=== PATIENT | female | born 1960 | race Caucasian/White ===

== ENCOUNTER 2017-10-18 12:05 | Emergency (ER) | payer BC, SELFPAY ==
[2017-10-18 12:05] VITALS: BP 136/91; PULSE 87; RESP 16; TEMP 36.8; O2SAT 100; BMI 20.9
--- NOTE | 2017-10-18 12:17 | NURSING ---
NO OLD EKG'S IN MUSE.
--- NOTE | 2017-10-18 12:30 | EKG12_ITS ---
Test Reason : CHEST TIGHTNESS Blood Pressure : / mmHG Vent. Rate : 071 BPM Atrial Rate : 071 BPM P-R Int : 156 ms QRS Dur : 080 ms QT Int : 376 ms P-R-T Axes : 044 065 031 degrees QTc Int : 408 ms Normal sinus rhythm Normal ECG Confirmed by PATTY GOMEZ, JUSTIN ([id number]), technical writer and editor YANCY CARNEY ([id number]) on 10/23/2017 3:06:08 PM Referred By: YODIT Confirmed By:JUSTIN BRAMBILA MD
--- NOTE | 2017-10-18 12:30 | RAD_ITS ---
STUDY: X-RAY CHEST REASON FOR EXAM: Female, 57 years old. Substernal chest pain TECHNIQUE: Single AP portable view of the chest. COMPARISON: None. FINDINGS: There is hyperinflation of the lungs consistent with chronic obstructive lung disease (COPD). Lungs are clear. There is no demonstrated pleural abnormality. Normal size heart. Normal mediastinum and criselda. Normal visualized pulmonary arteries. Normal visualized aortic arch and descending thoracic aorta. Normal visualized thoracic spine. Normal visualized ribs, clavicles, and shoulders. There is no demonstrated abnormality of the visualized soft tissue structures of the upper abdomen. RAD/Chest 1 View (Portable) IMPRESSION: No acute cardiopulmonary disease Electronically Signed: Timmy Tong DO at 13:18 EDT Tel , Service support ,
[2017-10-18 12:57] VITALS: O2SAT 98
[2017-10-18] MEDS: Aspirin 81 MG TAB.CHEW 324 MG PO (13:02)
[2017-10-18] MEDS: 0.9% Normal Saline 1,000 ML 150 ML IV (13:02)
[2017-10-18 13:05] VITALS: BP 121/77; PULSE 77; RESP 13; O2SAT 99
[2017-10-18 13:14] LABS: Absolute Lymphocyte Count 0.98 X10^3/ul (0.83-4.51); Absolute Neutrophil Count 6.3 X10^3/uL (2.0-7.7); Anion Gap 6 (5-15); BUN 13 mg/dL (7-18); BUN/Creat Ratio 14.7 RATIO (10-20); Basophil# 0.01 X10^3/uL; Basophil% 0.1 % (0-1); Calcium,Total 9.1 mg/dL (8.5-10.1); Chloride 104 mmol/L (98-107); Creatinine, Serum 0.88 mg/dL (0.55-1.02); EST Glomerular Filtration Rate 70 mL/min (>60); Eosinophil# 0.01 X10^3/uL; Eosinophils% 0.1 % (0-5); Est Glom Filt Rate - Afr Amer 85 mL/min (>60); Estimated Creatinine Clearance 67.24 ml/min; Glucose 115 mg/dL (74-106); Hematocrit 40.7 % (37-47); Hemoglobin 13.6 g/dl (12.0-15.0); Lymphocyte # 0.98 X10^3/ul (4.0); Lymphocyte % 12.8 % (19-41); Mean Corp Hgb Conc 33.4 g/gl (32-36); Mean Corpuscular Hgb 31.6 pg (27.0-32.0); Mean Corpuscular Volume 94.4 fL (81-99); Mean Platelet Vol. 10.2 fl (6.2-12.0); Monocyte# 0.34 X10^3/uL; Monocyte% 4.5 % (0-10); Neutrophil # 6.28 X10^3/uL (2.7-7.7); Neutrophil % 82.4 % (47-70); Platelet Count 266 K/mm3 (150-450); Potassium 3.8 mmol/L (3.5-5.1); RBC Distribution Width SD 44.9 fl (35.1-43.9); Red Blood Count 4.31 M/mm3 (4.2-5.4); Sodium Level 134 mmol/L (136-145); White Blood Count 7.6 K/mm3 (4.4-11.0)
[2017-10-18 13:15] LABS: POSITIVE COUNT NO; POSITIVE DIFFERENTIAL NO; POSITIVE MORPHOLOGY NO
[2017-10-18 13:20] LABS: D-Dimer Quantitative (DVT/PE) 0.27 FEU/ug/m (0.27-0.49)
[2017-10-18 14:07] VITALS: BP 121/71; PULSE 77; RESP 10; O2SAT 96
[2017-10-18 14:13] VITALS: BP 121/71; PULSE 86; RESP 15; O2SAT 97
--- NOTE | 2017-10-18 14:51 | ED.DCSUM_ITS ---
- ER Visit Summary Date of Service: 10/18/17 Chief Complaint: Chest pain History of Present Illness: The patient is a 57 F with a 2 day history of chest pain. She points to the left sternal border as well as the left lateral ribs. 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 She states that her shoulder is currently flared up and when she puts ice on her shoulder her chest pain does seem to get better. She just wanted to make sure that she was not having any acute cardiac issues that needed addressed. She does not feel short of breath. She has not broken out a cold sweat. She has no significant family history. She has no known risk factors. Physical Examination: Vital signs are unremarkable. Patient sitting upright in bed no acute distress. Head neck examination is unremarkable. Heart is regular rate and rhythm. Lung sounds are clear. She does have mild tenderness along left sternal border. Abdomen is soft nontender. Lower extremity examination was no calf tenderness or edema. Test Results: EKG is sinus at 71 with no sign of acute ischemia. Chest x-ray shows no acute disease. CBC and chemistry studies unremarkable. Sodium is slightly low at 134. Troponin is less than 0.015. D-dimer 0.27. Emergency Department Course and Treatment: Patient was given aspirin on arrival here. On repeat evaluation she is resting comfortably. She does feel improved at this time. She wishes to follow-up with her fast as an outpatient and she will be referred to her. She will be given prescription for anti- inflammatories. Treatment Plan: [] Disposition: Discharge Impression: Atypical chest pain This note was generated with [employer] dictation software. It may contain incorrect words, spelling, and punctuation that were not noted in review of the chart prior to signing ED Disposition - Plan for ED Patient: Chief Complaint: Chest Pain Referrals: Care Physician,No Primary [Primary Care Provider] -
--- NOTE | 2017-10-18 14:51 | ED.DEP ---
ED Disposition - Plan for ED Patient: Disposition: Home or Assisted Living Chief Complaint: Chest Pain Instructions: ED Chest Pain Atypical Unkn Cause Prescriptions: Naproxen [Naprosyn] 500 mg PO BID PRN #20 tablet Referrals: Masoud,Celeste, DO [NON-STAFF] - As soon as possible
[2017-10-18 15:01] VITALS: BP 128/73; PULSE 72; RESP 18; O2SAT 98; O2SAT 99
== END 2017-10-18 15:02 | disposition home or self-care (01) ==
PROVIDERS: Emergency Provider Emergency Medicine
DX: R07.89 Other chest pain (principal); Z79.899 Other long term (current) drug therapy
CPT/HCPCS: 71045; 80048; 84484; 85025; 85379; 93005; 99284; A4216

== ENCOUNTER → 2018-04-02 09:53 | Outpatient (CLI) | payer OTHER, SELFPAY ==
--- NOTE | 2018-04-02 09:58 | BI_ITS ---
MAMMOGRAPHY - BILATERAL SCREENING REASON FOR EXAM: Female, 58 years old. Routine annual screening examination. PERTINENT HISTORY: Grandmother with breast cancer. TECHNIQUE: Digital bilateral breast shaq (3D mammographic acquisition) in the CC and MLO projections. 2-D mediolateral oblique (MLO) and craniocaudad (CC) views of both breasts were obtained. CAD: Full Field Digital Mammography with Computer Added Detection was performed. COMPARISON: Comparison is made with prior study dated #32,[id number] and December 14, 2010. FINDINGS: Breast Composition: The breasts are heterogeneously dense, which may obscure small masses. There are no dominant masses or suspicious calcifications. Stable small bilateral axillary lymph nodes. No other significant abnormalities are identified. There has been no significant change since the prior study. BI/SCREENING MAMM (CAD), BILAT IMPRESSION: Stable bilateral screening mammogram. Yearly follow-up mammogram recommended. (A) ASSESSMENT CATEGORY: BIRADS Category 2: Benign. A letter regarding these results will be sent to the patient by the facility within 30 days. Approximately 10% of breast cancers are not detected by mammography. A normal mammogram should not delay biopsy of a clinically suspicious abnormality. [id number] Electronically Signed: Grant Kohler MD at 12:40 EST Tel [phone], Service support ,
--- OUTSIDE RECORDS SUMMARY | 2018-05-19 03:56 | XMS RPT_ITS ---
:1960 Author Organization [facility] Care Team Providers Name Role Phone PRISCILLA CHAWLA Attending Unavailable PRISCILLA CHAWLA Referring Unavailable Priscilla Chawla Attending Unavailable Primay Care Physicia, No Primary Care Unavailable Primay Care Physicia, No Primary Care Unavailable Sahyy Fung Attending Unavailable PROBLEMS PROBLEMS DATE TYPE CONDITION / CODE ATTENDING STATUS SOURCE 04/02/2018 Active Encounter for Active [facility] screening for [place] lipoid disorders Repository / Z13.220(ICD-10) 04/02/2018 Active Encounter for Active [facility] screening for [place] diabetes Repository mellitus / Z13.1(ICD-10) PROCEDURES PROCEDURES No Procedure Records FoundRESULTS RESULTS SCREENING MAMM (CAD), Observed: 04/02/2018 Status: F Source: [place] BILAT 9:59 AM [facility] REPOSITORY [facility] Imaging Services [address] [place] [address] SCREENING MAMM (CAD), BILAT MR#: [id number] Acct: [id number] Name: KYLAH MOE Rep #: [id number] : 1960 F 58 From: Grant Kohler MD PCP: Care Physician, No Primary Status: REG CLI Study: SCREENING MAMM (CAD), BILAT Date of Exam: 04/02/18 Exam# [id number] Ordering Dr: Priscilla Chawla MD MAMMOGRAPHY - BILATERAL SCREENING REASON FOR EXAM: Female, 58 years old. Routine annual screening examination. PERTINENT HISTORY: Grandmother with breast cancer. TECHNIQUE: Digital bilateral breast shaq (3D mammographic acquisition) in the CC and MLO projections. 2-D mediolateral oblique (MLO) and craniocaudad (CC) views of both breasts were obtained. CAD: Full Field Digital Mammography with Computer Added Detection was performed. COMPARISON: Comparison is made with prior study dated #32, and December 14, 2010. FINDINGS: Breast Composition: The breasts are heterogeneously dense, which may obscure small masses. There are no dominant masses or suspicious calcifications. Stable small bilateral axillary lymph nodes. No other significant abnormalities are identified. There has been no significant change since the prior study. BI/SCREENING MAMM (CAD), BILAT IMPRESSION: Stable bilateral screening mammogram. Yearly follow-up mammogram recommended. (A) ASSESSMENT CATEGORY: BIRADS Category 2: Benign. A letter regarding these results will be sent to the patient by the facility within 30 days. Approximately 10% of breast cancers are not detected by mammography. A normal mammogram should not delay biopsy of a clinically suspicious abnormality. [id number] Electronically Signed: Grant Kohler MD at 12:40 EST Tel [phone], Service support , CC: No Primary Care Physician; Priscilla Chawla MD Novelties Sales Representative: Signed GLUCOSE, FASTING Collected: 04/02/2018 Status: F Source: [place] 9:00 AM [facility] [place] REPOSITORY TYPE CODE TESTS RESULT OUT OF REFERENCE UNITS RANGE LAB GLF 74-99 mg/dL Glucose, 98 Fasting Result Comment: [place] Diabetes Association guidelines state that a diabetes mellitus diagnosis is preliminarily made when the fasting plasma glucose meets or exceeds 126 mg/dL. In the absence of unequivocal hyperglycemia, results should be confirmed with repeat testing. Patients are at increased risk for diabetes mellitus (prediabetes) when the fasting glucose is 100 to 125 mg/dL. Performed By: #### GLF #### [facility] [address] [place], [place] [address] LIPID PANEL, NONFAST Collected: 04/02/2018 Status: F Source: [place] 8:59 AM [facility] REPOSITORY TYPE CODE TESTS RESULT OUT OF REFERENCE UNITS RANGE LAB CHOLNF <200 mg/dL Total High Cholesterol NF 204 Result Comment: <200 mg/dL, Desirable 200-239 mg/dL, Borderline high >239 mg/dL, High LAB TRIGNF <150 mg/dL Triglycerides, NF 69 Result Comment: <150 mg/dL, Normal 150-199 mg/dL, Borderline high 200-499 mg/dL, High >499 mg/dL, Very high LAB HDLNF >39 mg/dL HDL Cholesterol, NF 72 Result Comment: 40-59 mg/dL, Acceptable >59 mg/dL, High: Negative risk factor for coronary heart disease <40 mg/dL, Low: Positive risk factor for coronary heart disease LAB LDLNF <100 mg/dL LDL Cholesterol, High NF 118 Result Comment: <100 mg/dL, Optimal 100-129 mg/dL, Near optimal/above optimal 130-159 mg/dL, Borderline high 160-189 mg/dL, High >189 mg/dL, Very high Secondary prevention optimal LDL Cholesterol levels are recommended to be < 70 mg/dL LAB NOHDLN <130 mg/dL High Non HDL Chol, 132 NF Result Comment: <130 mg/dL, Optimal 130-159 mg/dL, Near optimal/above optimal 160-189 mg/dL, Borderline high 190-219 mg/dL, High >219 mg/dL, Very high Secondary prevention optimal non HDL Cholesterol levels are recommended to be < 100 mg/dL LAB VLDLNF <30 mg/dL VLDL Cholesterol, NF 14 LAB TCHDLN <5.10 mg/dL T Chol/HDL Ratio NF 2.83 LAB LDLHDN <2.54 mg/dL LDL/HDL Ratio, NF 1.64 Result Comment: Reference: 1. National Cholesterol Education Program ATP III Guideline At-A-Glance Quick Desk Reference: National Heart, Lung, and Blood [place]. National Institutes of Health. 2001: NIH Publication No. 01-3305. 2. An International Atherosclerosis Society position paper: global recommendations for the management of dyslipidemia: executive summary, Atherosclerosis. 2014: 232(2):410-413. Performed By: #### LIPNF #### [facility] [address] [place], [place] [address] PROGRESS Observed: 03/10/2018 Status: COMPLETED Source: [place] 11:58 AM [facility] REPOSITORY HNO ID: [id number] Author: Priscilla Chawla Service: (none) Author Type: Physician Type: Progress Notes Filed: 03/10/2018 4:12 PM Note Text: Kylah Moe is a 58 year old who presents for her annual gynecologic exam without complaints. Postmenopausal: yes HRT use: No. Last Pap: 2016 normal HPV: 2017 negative History of abnormal pap: No Last mammogram: 2017 normal Sexually active: Yes Obstetric History T0 L0 SAB0 TAB0 Ectopic0 Multiple0 Live Births0 PAST MEDICAL HISTORY Diagnosis Date - Esophagitis - Excessive or frequent menstruation Heavy periods - Irregular menstrual cycle Irregular periods PAST SURGICAL HISTORY Procedure Laterality Date - HYSTEROSCOPY, SURGICAL; WITH ENDOME 07/17/10 Novasure, hysteroscopy [facility] - PAST SURGICAL HISTORY OF right arm fracture repair at 6 years old FAMILY HISTORY Problem Relation Age of Onset - Cancer Mother esouphagous - other (fibroids) Mother had hysterectomy - Cancer Maternal Grandmother breast ca with mastectomy - Diabetes Maternal Grandmother SOCIAL HISTORY Social History Substance Use Topics - Smoking status: Never Smoker - Smokeless tobacco: Never Used - Alcohol use Yes Comment: occasional REVIEW OF SYSTEMS Abdomen: No abdominal pain, nausea, vomiting, diarrhea, or constipation. No bloating, early satiety, indigestion, or increased flatulence. Bladder: No dysuria, gross hematuria, urinary frequency, urinary urgency, or incontinence Breast: No breast lumps, nipple d/c, overlying skin changes, redness or skin retraction Allergies and current medication updated:Yes EXAM: Ht 5' 6.25 (1.68m) Wt 132 lb (59.9kg) BMI 21.14 kg/(m2). GENERAL: pleasant, female in no apparent distress HEENT: Normocephalic, atraumatic, mucus membranes moist and no lesions NECK: Supple, full range of motion, no adenopathy and thyroid normal DERMATOLOGY: Normal, without lesions, non-icteric and non-hirsute BREAST: soft, non-tender, symmetric, no dominant mass, normal nipple-areolar complex, no lymphadenopathy and no nipple discharge CHEST: Normal inspiratory effort ABDOMEN: soft, non-tender and no masses PELVIC: external genitalia normal, normal Bartholin's glands, urethra, Horatio's glands, no vulvar lesions, no cervical lesions, good vaginal support, physiologic discharge present, normal appearing perineal body and perianal region BIMANUAL: uterus normal size, shape and consistency, no adnexal masses and non-tender RECTOVAGINAL: deferred. NEURO: alert and oriented x3,exam grossly non-focal EXTREMITIES: normal ASSESSMENT/PLAN: 1) Health maintenance: Pap/HPV up to date. Mammogram ordered Colon cancer screening: up to date with screening screening llipids and glucose ordered recommend est. w/ PCP d/w her calcium and vit d supplementation 2) Follow up one year or sooner as needed Priscilla Chawla MD CNOV Observed: 03/10/2018 Status: COMPLETED Source: [place] 11:40 AM [facility] REPOSITORY Office Visit (WOOB) KYLAH MOE ([id number]) 1960 F Date Time Provider Department 03/10/18 11:40 AM PRISCILLA CHAWLA WOOB During your visit today, we recorded the following information about you: Blood pressure Weight Height 122/70 59.9 kg 1.683 m Priscilla Chawla MD 03/10/2018 4:12 PM Signed Kylah Doll Malika is a 58 year old who presents for her annual gynecologic exam without complaints. Postmenopausal: yes HRT use: No. Last Pap: 2017 normal HPV: 2017 negative History of abnormal pap: No Last mammogram: 2018 normal Sexually active: Yes Obstetric History T0 L0 SAB0 TAB0 Ectopic0 Multiple0 Live Births0 PAST MEDICAL HISTORY Diagnosis Date - Esophagitis - Excessive or frequent menstruation Heavy periods - Irregular menstrual cycle Irregular periods PAST SURGICAL HISTORY Procedure Laterality Date - HYSTEROSCOPY, SURGICAL; WITH ENDOME 07/17/10 Novasure, hysteroscopy [facility] - PAST SURGICAL HISTORY OF right arm fracture repair at 6 years old FAMILY HISTORY Problem Relation Age of Onset - Cancer Mother esouphagous - other (fibroids) Mother had hysterectomy - Cancer Maternal Grandmother breast ca with mastectomy - Diabetes Maternal Grandmother SOCIAL HISTORY Social History Substance Use Topics - Smoking status: Never Smoker - Smokeless tobacco: Never Used - Alcohol use Yes Comment: occasional REVIEW OF SYSTEMS Abdomen: No abdominal pain, nausea, vomiting, diarrhea, or constipation. No bloating, early satiety, indigestion, or increased flatulence. Bladder: No dysuria, gross hematuria, urinary frequency, urinary urgency, or incontinence Breast: No breast lumps, nipple d/c, overlying skin changes, redness or skin retraction Allergies and current medication updated:Yes EXAM: Ht 5' 6.25 (1.68m) Wt 132 lb (59.9kg) BMI 21.14 kg/(m2). GENERAL: pleasant, female in no apparent distress HEENT: Normocephalic, atraumatic, mucus membranes moist and no lesions NECK: Supple, full range of motion, no adenopathy and thyroid normal DERMATOLOGY: Normal, without lesions, non-icteric and non-hirsute BREAST: soft, non-tender, symmetric, no dominant mass, normal nipple-areolar complex, no lymphadenopathy and no nipple discharge CHEST: Normal inspiratory effort ABDOMEN: soft, non-tender and no masses PELVIC: external genitalia normal, normal Bartholin's glands, urethra, Horatio's glands, no vulvar lesions, no cervical lesions, good vaginal support, physiologic discharge present, normal appearing perineal body and perianal region BIMANUAL: uterus normal size, shape and consistency, no adnexal masses and non-tender RECTOVAGINAL: deferred. NEURO: alert and oriented x3,exam grossly non-focal EXTREMITIES: normal ASSESSMENT/PLAN: 1) Health maintenance: Pap/HPV up to date. Mammogram ordered Colon cancer screening: up to date with screening screening llipids and glucose ordered recommend est. w/ PCP d/w her calcium and vit d supplementation 2) Follow up one year or sooner as needed Priscilla Chawla MD Referring Provider: SELF [200] Allergies As of Date: 03/10/2018 (No Known Allergies) Date Reviewed: 03/10/2018 Reviewed by: Priscilla Chawla - Fully Assessed Reason for Visit: Yearly Exam [187] Primary Visit Diagnosis:Encounter for gynecological examination (general) (routine) without abnormal findings [Z01.419] Other Visit Diagnoses:Encounter for screening for diabetes mellitus [Z13.1] Encounter for screening for lipoid disorders [Z13.220] Order(s):LIPID PANEL, NONFASTING [SQLIPNF] Order #: [id number] FUTURE GLUCOSE FASTING BLD [SQGLF] Order #: [id number] FUTURE Prescriptions as of 03/10/2018 Sig: VITAMIN D-3 ORAL Take by mouth. ZANTAC ORAL Take by mouth. MULTIVITAMIN TABLET Take one(1) tablet daily. B COMPLEX 1 TABLET Take one(1) tablet daily. BIOTIN ORAL Take by mouth. Problem List As Of Date 03/10/2018 Noted Resolved Metrorrhagia [N92.1] INVALID FOR*12/30/2014 Menorrhagia, premenopausal [N92.4] INVALID FOR*12/30/2014 Postcoital bleeding [N93.0] INVALID FOR*12/30/2014 Uterine polyp [N84.0] INVALID FOR*12/30/2014 Cervical high risk human papillomavirus (HPV) D*INVALID FOR* More... Disposition: Return in 1 year (on 03/10/2019) for Annual Exam. Follow-up and Disposition History Recorded Encounter Status:Closed by PRISCILLA CHAWLA MD on 03/10/18 [facility] Observed: 02/09/2018 Status: COMPLETED Source: [place] 12:00 AM [facility] REPOSITORY Telephone (Q) KYLAH MOE ([id number]) 1960 F Date Time Provider Department 02/09/18 PRISCILLA CHAWLA During your visit today, we recorded the following information about you: Rhoda Ortizr 02/09/2018 1:08 PM Signed Pt has been scheduled for her Annual exam and is requesting that we do a written order for her to have a 3D screening mammogram done at [facility]. I did explain to pt that we offer that service here as well. She would like to have it done where she had her prior scans. She would like to pick the order up here at the office later this week please. Thank you. Ariana Greene RN 02/09/2018 2:22 PM Signed Order to RR to sign. Ariana Espinoza RN 02/10/2018 10:56 AM Signed Order signed at up at net front end developer for patient to pickup in the office. Shayy Espinoza RN Allergies As of Date: 02/09/2018 (No Known Allergies) Date Reviewed: 02/27/2017 Reviewed by: Priscilla Chawla - Fully Assessed Reason for Visit: Orders [681] Prescriptions as of 02/09/2018 Sig: BIOTIN ORAL Take by mouth. VITAMIN D-3 ORAL Take by mouth. ZANTAC ORAL Take by mouth. MULTIVITAMIN TABLET Take one(1) tablet daily. B COMPLEX 1 TABLET Take one(1) tablet daily. Problem List As Of Date 02/09/2018 Noted Resolved Metrorrhagia [N92.1] INVALID FOR*12/30/2014 Menorrhagia, premenopausal [N92.4] INVALID FOR*12/30/2014 Postcoital bleeding [N93.0] INVALID FOR*12/30/2014 Uterine polyp [N84.0] INVALID FOR*12/30/2014 Cervical high risk human papillomavirus (HPV) D*INVALID FOR* More... Encounter Status:Closed by RHODA MATOS on 02/10/18 12 LEAD ELECTROCARDIOGRAM Observed: 10/23/2017 Status: F Source: [place] 3:06 PM [facility] Cardiovascular Services [address] [place] [id number] 12 Lead EKG 10/18/17 1229 MR#: [id number] Acct: [id number] Name: KYLAH MOE Rep #: [id number] : 1960 57 From: Roland Brambila MD Attending Dr: Status: DEP ER Ordering Dr: Shayy Fung MD Date: 10/18/17 Location: ED Sex: F C Admitted: Test Reason : CHEST TIGHTNESS Blood Pressure : / mmHG Vent. Rate : 071 BPM Atrial Rate : 071 BPM P-R Int : 156 ms QRS Dur : 080 ms QT Int : 376 ms P-R-T Axes : 044 065 031 degrees QTc Int : 408 ms Normal sinus rhythm Normal ECG Confirmed by ROLAND BRAMBILA MD ([id number]), video news editor YANCY CARNEY ([id number]) on 10/23/2017 3:06:08 PM Referred By: YODIT Confirmed By:ROLAND BRAMBILA MD 10/23/17 1506 Date Roland Brambila MD CC: No Primary Care Physician; Shayy Fung MD Signed EMERGENCY DEPARTMENT Observed: 10/18/2017 Status: F Source: [place] SUMMARY 4:36 PM [facility] Medical Records Department [address] [place] [id number] Emergency Department Summary 10/18/17 1449 MR#: [id number] Acct: [id number] Name: KYLAH MOE Rep #: [id number] : 1960 57 From: Shayy Fung MD PCP: Care Physician, No Primary Status: DEP ER - ER Visit Summary Date of Service: 10/18/17 Chief Complaint: Chest pain History of Present Illness: The patient is a 57 F with a 2 day history of chest pain. She points to the left sternal border as well as the left lateral ribs. 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 She states that her shoulder is currently flared up and when she puts ice on her shoulder her chest pain does seem to get better. She just wanted to make sure that she was not having any acute cardiac issues that needed addressed. She does not feel short of breath. She has not broken out a cold sweat. She has no significant family history. She has no known risk factors. Physical Examination: Vital signs are unremarkable. Patient sitting upright in bed no acute distress. Head neck examination is unremarkable. Heart is regular rate and rhythm. Lung sounds are clear. She does have mild tenderness along left sternal border. Abdomen is soft nontender. Lower extremity examination was no calf tenderness or edema. Test Results: EKG is sinus at 71 with no sign of acute ischemia. Chest x-ray shows no acute disease. CBC and chemistry studies unremarkable. Sodium is slightly low at 134. Troponin is less than 0.015. D-dimer 0.27. Emergency Department Course and Treatment: Patient was given aspirin on arrival here. On repeat evaluation she is resting comfortably. She does feel improved at this time. She wishes to follow-up with her fast as an outpatient and she will be referred to her. She will be given prescription for anti-inflammatories. Treatment Plan: [] Disposition: Discharge Impression: Atypical chest pain This note was generated with diaDexus dictation software. It may contain incorrect words, spelling, and punctuation that were not noted in review of the chart prior to signing ED Disposition - Plan for ED Patient: Chief Complaint: Chest Pain Referrals: Care Physician,No Primary [Primary Care Provider] - What to do if you have Problems For any increased pain, shortness of breath, bleeding, nausea or vomiting, chest pain, or any unexpected problems, contact your Primary Care Provider. Call [facility] ([phone]) or report to the closest Emergency Room. Call 911 if necessary. 10/18/17 1636 <Electronically signed by Shayy Fung MD> Date Shayy Fung MD Cosigner Signature (If Indicated): Date CC: No Primary Care Physician DISCHARGE INSTRUCTION Observed: 10/18/2017 Status: F Source: [place] 2:52 PM [facility] Medical Records Department [address] [place] [address] Discharge Instruction 10/18/17 1451 MR#: [id number] Acct: [id number] Name: KYLAH MOE Rep #: [id number] : 1960 57 From: Shayy Fung MD PCP: Care Physician, No Primary Status: REG ER ED Disposition - Plan for ED Patient: Disposition: Home or Assisted Living Chief Complaint: Chest Pain Instructions: ED Chest Pain Atypical Unkn Cause Prescriptions: Naproxen [Naprosyn] 500 mg PO BID PRN #20 tablet Referrals: Fast,Celeste, DO [NON-STAFF] - As soon as possible What to do if you have Problems For any increased pain, shortness of breath, bleeding, nausea or vomiting, chest pain, or any unexpected problems, contact your Primary Care Provider. Call [facility] ([phone]) or report to the closest Emergency Room. Call 911 if necessary. 10/18/171451 <Electronically signed by Shayy Fung MD> Date Shayy Fung MD Cosigner Signature (If Indicated): Date CC: No Primary Care Physician CHEST 1 VIEW Observed: 10/18/2017 Status: F Source: [place] (PORTABLE) 12:31 PM [facility] Imaging Services [address] [place] [address] Chest 1 View (Portable) MR#: [id number] Acct: [id number] Name: KYLAH MOE Rep #: [id number] : 1960 F 57 From: Timmy Tong DO PCP: Care Physician, No Primary Status: REG ER Study: Chest 1 View (Portable) Date of Exam: 10/18/17 Exam# [id number] Ordering Dr: Shayy Fung MD STUDY: X-RAY CHEST REASON FOR EXAM: Female, 57 years old. Substernal chest pain TECHNIQUE: Single AP portable view of the chest. COMPARISON: None. FINDINGS: There is hyperinflation of the lungs consistent with chronic obstructive lung disease (COPD). Lungs are clear. There is no demonstrated pleural abnormality. Normal size heart. Normal mediastinum and criselda. Normal visualized pulmonary arteries. Normal visualized aortic arch and descending thoracic aorta. Normal visualized thoracic spine. Normal visualized ribs, clavicles, and shoulders. There is no demonstrated abnormality of the visualized soft tissue structures of the upper abdomen. RAD/Chest 1 View (Portable) IMPRESSION: No acute cardiopulmonary disease Electronically Signed: Timmy Tong DO at 13:18 EDT Tel , Service support , CC: No Primary Care Physician; Shayy Fung MD Novelties Sales Representative: Signed BASIC METABOLIC Collected: 10/18/2017 Status: F Source: [place] PROFILE (BMP) 12:20 PM [facility] TYPE CODE TESTS RESULT OUT OF RANGE REFERENCE UNITS LAB L501.0100 74-106 mg/dL High GLU 115 Result Comment: Fasting Glucose result from 100 to 125 mg/dL suggests IMPAIRED HOMEOSTASIS per A.D.A. criteria. Please note revised GLUCOSE reference range effective 2017. LAB L501.1000 7-18 mg/dL Normal BUN 13 LAB L501.1100 0.55-1.02 mg/dL Normal CREAT,SERUM 0.88 Result Comment: The validity of the calculated GFR AND GFRAA in patients over 70 years has not been determined. Clinical correlation is essential. LAB L501.1110 >60 mL/min Normal EST GFR 70 Result Comment: Non- GFR Calc LAB L501.1115 >60 mL/min Normal EST GFR - AA 85 Result Comment: GFR Calc LAB L501.1255 ml/min Normal Estimated CRCL 67.24 LAB L501.1300 10-20 RATIO Normal BUN/CRE 14.7 LAB L501.2200 8.5-10 mg/dL Normal .1 CA 9.1 LAB L501.5300 136-14 mmol/L Low 5 NA 134 LAB L501.5600 3.5-5. mmol/L Normal 1 K 3.8 LAB L501.5900 98-107 mmol/L Normal CL 104 LAB L501.6100 21.0-3 mmol/L Normal 2.0 CO2 24.0 LAB L501.6200 5-15 Normal GAP 6 Performed By: #### L500.2500, L501.4010 #### [facility] [address] [facility] [place], [place], [address] TROPONIN-I Collected: 10/18/2017 Status: F Source: [place] 12:20 PM [facility] [place] TYPE CODE TESTS RESULT OUT OF RANGE REFERENCE UNITS LAB L501.4010 <0.045 ng/mL Normal < 0.015 TROPONIN-I Result Comment: TROPONIN-I EXPECTED VALUES <0.045 Negative 0.045 - 0.590 Consistent with Cardiac Damage > OR = 0.600 Critical Value Not every elevated troponin is indicative of IN. These values should be used with clinical judgement in examining the patient's clinical picture for diagnosis. To establish a diagnosis of IN versus myocardial injury, there must be a demonstrated rise and/or fall in the troponin values, in addition to ischemic symptoms, EKG changes, new regional wall motion abnormality, and/or angiographical evidence. PLEASE NOTE: REFERENCE RANGES EDITED 17 Performed By: #### L500.2500, L501.4010 #### [facility] [address] [facility] [place], [place], [address] CBC W/DIFF, AUTOMATED Collected: 10/18/2017 Status: F Source: [place] 12:20 PM [facility] TYPE CODE TESTS RESULT OUT OF RANGE REFERENCE UNITS LAB L100.1000 4.4-11.0 K/mm3 Normal WBC 7.6 LAB L100.1200 4.2-5.4 M/mm3 Normal RBC 4.31 LAB L100.1300 12.0-15.0 g/dl Normal HGB 13.6 LAB L100.1400 37-47 % Normal HCT 40.7 LAB L100.1500 81-99 fL Normal MCV 94.4 LAB L100.1600 27.0-32.0 pg Normal MCH 31.6 LAB L100.1700 32-36 g/gl Normal MCHC 33.4 LAB L100.1810 11.6-14.6 % Normal RDW CV 13.0 LAB L100.1820 35.1-43.9 fl High RDW SD 44.9 LAB L100.1900 150-450 K/mm3 Normal PLT 266 LAB L100.2000 6.2-12.0 fl Normal MPV 10.2 LAB L100.2100 47-70 % High NEUT% 82.4 LAB L100.2200 19-41 % Low LY% 12.8 LAB L100.2300 0-10 % Normal MONO% 4.5 LAB L100.2400 0-5 % Normal EO% 0.1 LAB L100.2500 0-1 % Normal BASO% 0.1 LAB L100.2550 0.0-0.9 % Normal IM GRAN % 0.100 Result Comment: IG% - Immature Granulocytes (promyelocytes, myelocytes and metamyelocytes) > 1% indicates that a LEFT SHIFT is Present. LAB L100.2620 2.0-7.7 X10 3/uL Normal Absolute Neut 6.3 LAB L100.2720 0.83-4.51 X10 3/ul Normal Absolute Lymph 0.98 Performed By: #### L100.0100 #### [facility] [address] [place], [address] D-DIMER QUANTITATIVE Collected: 10/18/2017 Status: F Source: [place] (DVT/PE) 12:20 PM [facility] TYPE CODE TESTS RESULT OUT OF RANGE REFERENCE UNITS LAB L300.8000 0.27-0.49 FEU/ug/m Normal D-DIMER 0.27 QUANT Result Comment: NORMAL D-Dimer level (<0.50) indicates no DVT or PE. Performed By: #### L300.8000 #### [facility] [address], [place], [id number] ALLERGIES ALLERGIES DATE TYPE / CODE NAME / CODE REACTION SEVERITY SOURCE 10/18/2017 Drug No Known Unknown [facility] Allergy/416 Allergies/Q08206 Hospital 850077(SNOM 0388(RXNORM) Repository ED CT) Drug NO KNOWN [facility] Class/77375 ALLERGIES Main [place] 1003(SNOMED Repository CT) ENCOUNTERS ENCOUNTERS ADMIT/DISCHARGE ACCOUNT ADMITTING ENCOUNTER LOCATION SOURCE NUMBER CLASS 04/02/2018 [id number] Ambulatory [facility] ing:OPBI Repository 04/02/2018/04/02/20 [id number] Ambulatory [address] Repository 03/10/2018/03/11/20 [id number] Ambulatory [address] Repository 10/18/2017/10/19/19 [id number] Emergency [address] ing:ED Repository PAYERS PAYERS ENCOUNTER GUARANTOR PAYER SUBSCRIBER SOURCE 04/02/2018 ADAM Ge Primary ADAM Ge Joe [id number] Twp Insurance:AETNAPolicy SHYMSKEDOB: [address] Number: [id number] [address]Yjf: (594) [id number] Repository [phone] (HP) Date:[id number] [address]KS: 04/02/2018 Secondary NOT GIVENUNK Joe Insurance:SELF PAY [facility] Number: Effective Repository Date:2018-02-10 10/18/2017 Adam Ge Primary ADAM Ge Joe [id number] Insurance:ANTHEMPolic SHYMSKEDOB: [address] y Number: [id number] [address]Agi: [phone] [id number] Repository [phone] (HP) Date:[id number] [address], [place] [address]QT: 10/18/2017 Secondary NOT GIVENUNK Joe Insurance:SELF PAY [facility] Number: Effective Repository Date:2017-10-18
== END ==
PROVIDERS: Visit Provider Obstetrics & Gynecology
DX: Z12.31 Encounter for screening mammogram for malignant neoplasm of breast (principal)
CPT/HCPCS: 77063; 77067

== ENCOUNTER → 2019-04-08 08:40 | Outpatient (CLI) | payer OTHER, SELFPAY ==
--- NOTE | 2019-04-08 08:42 | BI_ITS ---
MAMMOGRAPHY - BILATERAL SCREENING REASON FOR EXAM: Female, 59 years old. Routine annual screening examination. PERTINENT HISTORY: Grandmother with breast cancer. TECHNIQUE: Digital bilateral breast claudia (3D mammographic acquisition) in the CC and MLO projections. 2-D mediolateral oblique (MLO) and craniocaudad (CC) views of both breasts were obtained. CAD: Full Field Digital Mammography with Computer Added Detection was performed. COMPARISON: Comparison is made with prior study dated April 02, 2018 and February 21, 2017. FINDINGS: Breast Composition: The breasts are heterogeneously dense, which may obscure small masses. There are no dominant masses or suspicious calcifications. No other significant abnormalities are identified. There has been no significant change since the prior study. BI/SCREEN MAMM (CAD) W/CLAUDIA BILAT IMPRESSION: Stable bilateral screening mammogram. Yearly follow-up mammogram recommended. (A) ASSESSMENT CATEGORY: BIRADS Category 1: Negative. A letter regarding these results will be sent to the patient by the facility within 30 days. Approximately 10% of breast cancers are not detected by mammography. A normal mammogram should not delay biopsy of a clinically suspicious abnormality. [id number] Electronically Signed: Grant Kolher, at 9:27 EST , Service support ,
== END ==
PROVIDERS: Referring Provider Obstetrics & Gynecology; Visit Provider Obstetrics & Gynecology
DX: Z12.31 Encounter for screening mammogram for malignant neoplasm of breast (principal)
CPT/HCPCS: 77063; 77067

== ENCOUNTER → 2020-04-19 08:39 | Outpatient (CLI) | payer OTHER, SELFPAY ==
--- NOTE | 2020-04-19 08:42 | BI_ITS ---
MAMMOGRAPHY - BILATERAL SCREENING REASON FOR EXAM: Female, 60 years old. Routine annual screening examination. PERTINENT HISTORY: Grandmother with breast cancer. Occasional left nipple inversion. TECHNIQUE: Digital bilateral breast claudia (3D mammographic acquisition) in the CC and MLO projections. 2-D mediolateral oblique (MLO) and craniocaudad (CC) views of both breasts were obtained. CAD: Full Field Digital Mammography with Computer Added Detection was performed. COMPARISON: Comparison is made with prior study dated 04/08/2019 and 04/02/2018. FINDINGS: Breast Composition: The breasts are extremely dense, which lowers the sensitivity of mammography. There are no dominant masses or suspicious calcifications. Stable small benign-appearing bilateral axillary lymph nodes. No other significant abnormalities are identified. There has been no significant change since the prior study. BI/SCREEN MAMM (CAD) W/CLAUDIA BILAT IMPRESSION: Stable bilateral screening mammogram. Yearly follow-up mammogram recommended. (A) ASSESSMENT CATEGORY: BIRADS Category 2: Benign. A letter regarding these results will be sent to the patient by the facility within 30 days. Approximately 10% of breast cancers are not detected by mammography. A normal mammogram should not delay biopsy of a clinically suspicious abnormality. [id number] Electronically Signed: Grant Kohler, at 9:52 EST , Service support ,
== END ==
PROVIDERS: Referring Provider Obstetrics & Gynecology; Visit Provider Obstetrics & Gynecology
DX: Z12.31 Encounter for screening mammogram for malignant neoplasm of breast (principal); Z80.3 Family history of malignant neoplasm of breast
CPT/HCPCS: 77063; 77067

== ENCOUNTER 2021-05-17 09:10 | Outpatient (CLI) | payer OTHER, SELFPAY ==
--- NOTE | 2021-05-17 09:13 | BI_ITS ---
MAMMOGRAPHY - BILATERAL SCREENING REASON FOR EXAM: Female, 61 years old. Routine annual screening examination. PERTINENT HISTORY: Grandmother with breast cancer. TECHNIQUE: Digital bilateral breast claudia (3D mammographic acquisition) in the CC and MLO projections. 2-D mediolateral oblique (MLO) and craniocaudad (CC) views of both breasts were obtained. CAD: Full Field Digital Mammography with Computer Added Detection was performed. COMPARISON: Comparison is made with prior study dated 04/19/2020 and 04/08/2019. FINDINGS: Breast Composition: The breasts are extremely dense, which lowers the sensitivity of mammography. There are no dominant masses or suspicious calcifications. Stable small benign-appearing bilateral axillary lymph nodes. No other significant abnormalities are identified. There has been no significant change since the prior study. BI/SCRN MAMM (CAD)W/CLAUDIA BILAT IMPRESSION: Stable bilateral screening mammogram. Yearly follow-up mammogram recommended. (A) ASSESSMENT CATEGORY: BIRADS Category 2: Benign. A letter regarding these results will be sent to the patient by the facility within 30 days. Approximately 10% of breast cancers are not detected by mammography. A normal mammogram should not delay biopsy of a clinically suspicious abnormality. [id number] Electronically Signed: Grant Kohler MD at 10:05 EST ,
== END 2021-05-17 23:59 | disposition short-term general hospital (02) ==
LOC: OPBI 09:11
PROVIDERS: Referring Provider Obstetrics & Gynecology; Visit Provider Obstetrics & Gynecology
DX: Z12.31 Encounter for screening mammogram for malignant neoplasm of breast (principal)
CPT/HCPCS: 77063; 77067

== ENCOUNTER → 2022-05-23 | Outpatient (CLI) | payer OTHER, SELFPAY ==
--- NOTE | 2022-05-23 08:31 | BI_ITS ---
MAMMOGRAPHY - BILATERAL SCREENING REASON FOR EXAM: Female, 62 years old. Routine annual screening examination. PERTINENT HISTORY: Grandmother with breast cancer. Chronic left nipple inversion. TECHNIQUE: Digital bilateral breast claudia (3D mammographic acquisition) in the CC and MLO projections. 2-D mediolateral oblique (MLO) and craniocaudad (CC) views of both breasts were obtained. CAD: Full Field Digital Mammography with Computer Added Detection was performed. COMPARISON: Comparison is made with prior study dated 05/17/2021 and 04/19/2020. FINDINGS: Breast Composition: The breasts are extremely dense, which lowers the sensitivity of mammography. Asymmetrical density in the deep upper medial aspect of the left breast. Correlation with ultrasound is recommended. No other significant abnormalities are identified. BI/SCRN MAMM (CAD)W/CLAUDIA BILAT IMPRESSION: Asymmetrical density in the deep upper medial aspect of the left breast. Correlation with ultrasound is recommended. ASSESSMENT CATEGORY: BIRADS Category 0: Incomplete. Need additional imaging evaluation. A letter regarding these results will be sent to the patient by the facility within 30 days. Approximately 10% of breast cancers are not detected by mammography. A normal mammogram should not delay biopsy of a clinically suspicious abnormality. [id number] Electronically Signed: Grant Kohler MD at 9:35 EST ,
== END | disposition home or self-care (01) ==
PROVIDERS: Visit Provider Obstetrics & Gynecology
DX: Z12.31 Encounter for screening mammogram for malignant neoplasm of breast (principal)
CPT/HCPCS: 77063; 77067

== ENCOUNTER → 2022-05-24 | Outpatient (CLI) | payer OTHER, SELFPAY ==
--- NOTE | 2022-05-24 12:32 | US_ITS ---
STUDY: ULTRASOUND BREAST - LEFT REASON FOR EXAM: Female, 62 years old. Abnormal screening mammogram. TECHNIQUE: Axial and longitudinal images of the LEFT breast were performed with a high resolution ultrasound transducer. # OF IMAGES: 35 COMPARISON: Comparison is made with prior study dated 05/23/2022. FINDINGS: LEFT Breast: The upper inner quadrant of the left breast was examined with ultrasound. There is dense fibroglandular tissue. No sonographic abnormality is seen. US/Breast Limited Unilateral IMPRESSION: Asymmetrical breast tissue. No sonographic abnormality is seen. ASSESSMENT CATEGORY: BIRADS Category 1: Negative. A letter regarding these results will be sent to the patient by the facility within 30 days. Electronically Signed: Grant Kohler MD at 13:10 EST ,
== END | disposition home or self-care (01) ==
LOC: OPUS 12:30
PROVIDERS: Referring Provider Obstetrics & Gynecology; Visit Provider Obstetrics & Gynecology
DX: R92.2 Inconclusive mammogram (principal)
CPT/HCPCS: 76642

== ENCOUNTER → 2023-07-03 | Outpatient (CLI) | payer OTHER, SELFPAY ==
--- NOTE | 2023-07-03 11:51 | BI_ITS ---
MAMMOGRAPHY - BILATERAL SCREENING REASON FOR EXAM: Female, 63 years old. Routine annual screening examination. PERTINENT HISTORY: Grandmother with breast cancer. TECHNIQUE: Digital bilateral breast claudia (3D mammographic acquisition) in the CC and MLO projections. 2-D mediolateral oblique (MLO) and craniocaudad (CC) views of both breasts were obtained. CAD: Full Field Digital Mammography with Computer Added Detection was performed. COMPARISON: Comparison is made with prior study dated May 23, 2022 and May 17, 2021. FINDINGS: Breast Composition: The breasts are extremely dense, which lowers the sensitivity of mammography. There are no dominant masses or suspicious calcifications. Stable asymmetry of breast tissue in the upper deep medial aspect of the left breast. No other significant abnormalities are identified. There has been no significant change since the prior study. BI/SCRN MAMM (CAD)W/CLAUDIA BILAT IMPRESSION: Stable bilateral screening mammogram. Yearly follow-up mammogram recommended. (A) ASSESSMENT CATEGORY: BIRADS Category 2: Benign. A letter regarding these results will be sent to the patient by the facility within 30 days. Approximately 10% of breast cancers are not detected by mammography. A normal mammogram should not delay biopsy of a clinically suspicious abnormality. [id number] Electronically Signed: Grant Kohler MD at 13:35 EDT ,
== END | disposition home or self-care (01) ==
LOC: OPBI 11:49
PROVIDERS: Referring Provider Obstetrics & Gynecology; Visit Provider Obstetrics & Gynecology
DX: Z12.31 Encounter for screening mammogram for malignant neoplasm of breast (principal)
CPT/HCPCS: 77063; 77067

== ENCOUNTER → 2024-07-06 | Outpatient (CLI) | payer OTHER, SELFPAY ==
--- NOTE | 2024-07-06 16:21 | BI_ITS ---
EXAM: SCRN MAMM (CAD)W/CLAUDIA BILAT DATE: 07/06/2024 CLINICAL HISTORY: F, Age 64 y/o , SCREENING. Grandmother with breast cancer. Occasional inversion of the left nipple complex. BREAST CANCER RISK ASSESSMENT: Not assessed TECHNIQUE: Bilateral screening digital breast tomosynthesis with 2D and 3D images. Computer aided detection. COMPARISON: Prior exam(s) dating back to July 03, 2023.. FINDINGS: Bilateral Breast Mammographic Findings: No significant masses, calcifications or other abnormalities are identified. TISSUE DENSITY: The breast tissue is extremely dense which lowers the sensitivity of mammography. No suspicious masses, areas of developing architectural distortion, or suspicious calcifications. There has been no significant interval change. BI/SCRN MAMM (CAD)W/CLAUDIA BILAT IMPRESSION: Right Breast: BIRADS 1 NEGATIVE. Left Breast: BIRADS 1 NEGATIVE. OVERALL FINAL ASSESSMENT: BIRADS 1 NEGATIVE RECOMMENDATION: ROUTINE ANNUAL FOLLOW-UP Bilateral in 1 Year Normal interval followup mammograms are recommended in 12 months. A letter with findings and recommendations will be mailed to the patient. Reading Location: [place] [address]
== END | disposition home or self-care (01) ==
LOC: OPBI 16:20
PROVIDERS: Referring Provider Obstetrics & Gynecology; Visit Provider Obstetrics & Gynecology
DX: Z12.31 Encounter for screening mammogram for malignant neoplasm of breast (principal); Z80.3 Family history of malignant neoplasm of breast
CPT/HCPCS: 77063; 77067